=== PATIENT | female | born 1990 | race Two or more races ===

== ENCOUNTER 2016-06-14 03:38 | Emergency (ER) | payer OTHER, MEDICAID ==
[~2016-06-14] VITALS: Ht 162.6 cm; Wt 66.7 kg
[~2016-06-14 03:38] MED LIST: PREN-96 PO
[2016-06-14 03:43] VITALS: BP 99/61
[2016-06-14 04:39] LABS: Urine Bilirubin Negative (Negative); Urine Blood Negative /uL (Negative); Urine Color Yellow (Yellow); Urine Glucose Normal (Normal); Urine Ketone Negative (Negative); Urine Nitrite Negative (Negative); Urine RBC <1 /hpf (0 - 4); Urine Squamous Epithelial Cell FEW /hpf (<5); Urine Urobilinogen Normal (Negative); Urine pH 5.5 (5.0-8.0)
== END 2016-06-14 06:03 | disposition left against medical advice (07) ==
LOC: ER 03:41
DX: N64.4 Mastodynia (principal); Z53.21 Procedure and treatment not carried out due to patient leaving prior to being seen by health care provider
CPT/HCPCS: 36415; 81001; 81025; 84702

== ENCOUNTER 2016-08-20 03:42 | Emergency (ER) | payer OTHER, MEDICAID ==
[~2016-08-20] VITALS: Ht 162.6 cm; Wt 65.8 kg
[2016-08-20 03:49] VITALS: BP 112/75
[2016-08-20 04:03] LABS: Urine RBC None Seen /hpf (0 - 4)
[2016-08-20 04:05] LABS: Basophils # (auto) 0 uL; Basophils % (auto) 0.4 % (0.0-2.0); Eosinophils # (auto) 0.2 uL; Eosinophils % (auto) 2.3 % (0.0-7.0); Hematocrit 35.5 % (36.0-46.0); Hemoglobin 11.5 g/dL (12.2-16.2); Lymphocytes # (auto) 2.4 uL; Lymphocytes % (auto) 29.4 % (10.0-50.0); Mean Corpuscular Hemoglobin 31.3 pg (28.0-32.0); Mean Corpuscular Hgb Conc. 32.5 g/dL (32.0-36.0); Mean Corpuscular Volume 96.3 fL (80.0-100.0); Mean Platelet Volume 11.9 fL (7.4-10.4); Monocytes # (auto) 0.9 uL; Monocytes % (auto) 11.5 % (0.0-12.0); Neutrophils # (auto) 4.7 uL; Neutrophils % (auto) 56.4 % (37.0-80.0); Platelet Count (auto) 233 10^3/uL (140-450); Red Cell Distribution Width 13.9 % (11.6-16.0); SUSPECT VIEW TRANSMISSION; White Blood Cell 8.3 10^3/uL (4.4-10.8)
[2016-08-20 04:25] LABS: BUN/Creatinine Ratio 24.3; Calcium 8.7 mg/dL (8.5-10.1); Potassium 3.6 mmol/L (3.5-5.1)
[2016-08-20 04:31] LABS: Urine Bilirubin Negative (Negative); Urine Blood Negative /uL (Negative); Urine Color Yellow (Yellow); Urine Glucose Normal (Normal); Urine Ketone Negative (Negative); Urine Nitrite Negative (Negative); Urine Squamous Epithelial Cell FEW /hpf (<5); Urine Urobilinogen Normal (Negative); Urine pH 7.5 (5.0-8.0)
== END 2016-08-20 06:37 | disposition left against medical advice (07) ==
LOC: ER 03:54
DX: N93.8 Other specified abnormal uterine and vaginal bleeding (principal); R10.9 Unspecified abdominal pain; Z53.21 Procedure and treatment not carried out due to patient leaving prior to being seen by health care provider
CPT/HCPCS: 36415; 80048; 81001; 81025; 85025

== ENCOUNTER 2016-09-14 13:50 | Emergency (ER) | payer OTHER, MEDICAID ==
[~2016-09-14] VITALS: Ht 162.6 cm; Wt 64.4 kg
[2016-09-14 16:09] LABS: Basophils # (auto) 0.1 uL; Basophils % (auto) 0.9 % (0.0-2.0); Eosinophils # (auto) 0.1 uL; Eosinophils % (auto) 1.5 % (0.0-7.0); Hematocrit 38.4 % (36.0-46.0); Hemoglobin 12.9 g/dL (12.2-16.2); Lymphocytes % (auto) 29.9 % (10.0-50.0); Mean Corpuscular Hemoglobin 32.3 pg (28.0-32.0); Mean Corpuscular Hgb Conc. 33.7 g/dL (32.0-36.0); Mean Platelet Volume 11.6 fL (7.4-10.4); Monocytes # (auto) 0.4 uL; Monocytes % (auto) 5.4 % (0.0-12.0); Neutrophils # (auto) 4.1 uL; Neutrophils % (auto) 62.3 % (37.0-80.0); Platelet Count (auto) 255 10^3/uL (140-450); Red Cell Distribution Width 14.6 % (11.6-16.0); SUSPECT VIEW TRANSMISSION; White Blood Cell 6.5 10^3/uL (4.4-10.8)
[2016-09-14 16:11] LABS: Urine Bilirubin Negative (Negative); Urine Blood TRACE /uL (Negative); Urine Color Yellow (Yellow); Urine Glucose Normal (Normal); Urine Ketone Negative (Negative); Urine Nitrite Negative (Negative); Urine RBC <1 /hpf (0 - 4); Urine Squamous Epithelial Cell FEW /hpf (<5); Urine Urobilinogen Normal (Negative)
[2016-09-14 16:56] VITALS: BP 95/65
[2016-09-14 17:02] LABS: Large Platelets FEW; Platelet Estimate Adequate
== END 2016-09-14 18:11 | disposition home or self-care (01) ==
LOC: ER 13:50
DX: N93.9 Abnormal uterine and vaginal bleeding, unspecified (principal)
CPT/HCPCS: 36415; 81001; 84702; 85025

== ENCOUNTER 2017-12-04 14:06 | Emergency (ER) | payer MEDICAID, OTHER ==
[~2017-12-04] VITALS: Ht 165.1 cm; Wt 63.5 kg
[2017-12-04 14:45] LABS: Basophils # (auto) 0.1 uL; Basophils % (auto) 0.9 % (0.0-2.0); Eosinophils # (auto) 0.3 uL; Eosinophils % (auto) 3.9 % (0.0-7.0); Hematocrit 37.5 % (36.0-46.0); Hemoglobin 12.8 g/dL (12.2-16.2); Lymphocytes # (auto) 1.8 uL; Lymphocytes % (auto) 27.4 % (10.0-50.0); Mean Corpuscular Hemoglobin 32.8 pg (28.0-32.0); Mean Corpuscular Hgb Conc. 34.2 g/dL (32.0-36.0); Monocytes # (auto) 0.3 uL; Monocytes % (auto) 4.8 % (0.0-12.0); Neutrophils # (auto) 4.1 uL; Nucleated Red Blood Cells % 0.1 %; Platelet Count (auto) 193 10^3/uL (140-450); Red Blood Cells 3.91 10^6/uL (4.0-5.20); Red Cell Distribution Width 14.3 % (11.8-14.3); White Blood Cell 6.4 10^3/uL (4.4-10.8)
[2017-12-04 15:48] VITALS: BP 102/62
== END 2017-12-04 16:00 | disposition home or self-care (01) ==
LOC: ER 14:06
DX: O02.0 Blighted ovum and nonhydatidiform mole (principal)
CPT/HCPCS: 36415; 84702; 85025

== ENCOUNTER → 2017-12-04 | Emergency (ER) | payer OTHER, MEDICAID | END | disposition left against medical advice (07) | LOC: CANPREER → ER 02:54 | DX: N93.9 Abnormal uterine and vaginal bleeding, unspecified (principal); Z53.21 Procedure and treatment not carried out due to patient leaving prior to being seen by health care provider ==

== ENCOUNTER 2017-12-25 17:16 | Emergency (ER) | payer OTHER, MEDICAID ==
[~2017-12-25] VITALS: Ht 162.6 cm; Wt 65.8 kg
[2017-12-25 22:17] VITALS: BP 99/57
== END 2017-12-25 22:17 | disposition home or self-care (01) ==
LOC: ER 17:21
DX: O26.851 Spotting complicating pregnancy, first trimester (principal); O34.81 Maternal care for other abnormalities of pelvic organs, first trimester; N83.209 Unspecified ovarian cyst, unspecified side; Z3A.01 Less than 8 weeks gestation of pregnancy
CPT/HCPCS: 36415; 76801; 84702

== ENCOUNTER 2018-01-09 16:40 | Emergency (ER) | payer OTHER, MEDICAID ==
[~2018-01-09] VITALS: Ht 162.6 cm; Wt 67.1 kg
[2018-01-09 17:02] VITALS: BP 109/61
[2018-01-09] MEDS ORDERED: SODIUM CHLORIDE 0.9% 1,000 ML IVB ONE (17:14)
[2018-01-09 17:20] LABS: Urine Bacteria NONE SEEN /hpf (None Seen); Urine Blood Negative /uL (Negative); Urine Specific Gravity 1.002 (1.001-1.035); Urine WBC 1 /hpf (0 - 5)
[2018-01-09 17:37] LABS: Basophils # (auto) 0.1 uL; Basophils % (auto) 1.1 % (0.0-2.0); Eosinophils # (auto) 0.3 uL; Hematocrit 33.6 % (36.0-46.0); Hemoglobin 11.2 g/dL (12.2-16.2); Lymphocytes % (auto) 22.7 % (10.0-50.0); Mean Corpuscular Hemoglobin 32.4 pg (28.0-32.0); Mean Corpuscular Hgb Conc. 33.3 g/dL (32.0-36.0); Mean Corpuscular Volume 97.2 fL (80.0-100.0); Monocytes # (auto) 0.6 uL; Neutrophils # (auto) 5.9 uL; Neutrophils % (auto) 66.2 % (37.0-80.0); Platelet Count (auto) 239 10^3/uL (140-450); Red Blood Cells 3.46 10^6/uL (4.0-5.20); Red Cell Distribution Width 14.4 % (11.8-14.3); White Blood Cell 8.9 10^3/uL (4.4-10.8)
[2018-01-09 18:10] LABS: BUN/Creatinine Ratio 12.5; Bilirubin, Total 0.2 mg/dL (0.2-1.0); Calcium 8.6 mg/dL (8.5-10.1); Potassium 3.4 mmol/L (3.5-5.1)
[2018-01-09] MEDS ORDERED: POTASSIUM EFFERVESENT TAB 25 MEQ GT ONE (18:30)
== END 2018-01-09 18:26 | disposition home or self-care (01) ==
LOC: ER 16:40
DX: O08.5 Metabolic disorders following an ectopic and molar pregnancy (principal); E87.6 Hypokalemia; O25.11 Malnutrition in pregnancy, first trimester; Z3A.09 9 weeks gestation of pregnancy
CPT/HCPCS: 36415; 80053; 81001; 81025; 84702; 85025; 94761; 96360

== ENCOUNTER 2018-01-30 05:25 | Emergency (ER) | payer OTHER, MEDICAID ==
[~2018-01-30] VITALS: Ht 162.6 cm; Wt 67.1 kg
[2018-01-30 06:20] LABS: Urine Bacteria MANY /hpf (None Seen); Urine Blood 1+ /uL (Negative); Urine Mucus FEW (None Seen); Urine Specific Gravity 1.011 (1.001-1.035); Urine WBC 3 /hpf (0 - 5)
[2018-01-30 06:55] LABS: Basophils # (auto) 0 uL; Basophils % (auto) 0.2 % (0.0-2.0); Eosinophils # (auto) 0.3 uL; Eosinophils % (auto) 3.1 % (0.0-7.0); Hematocrit 33.7 % (36.0-46.0); Hemoglobin 11.6 g/dL (12.2-16.2); Lymphocytes % (auto) 22.5 % (10.0-50.0); Mean Corpuscular Hemoglobin 33.3 pg (28.0-32.0); Mean Corpuscular Hgb Conc. 34.5 g/dL (32.0-36.0); Mean Corpuscular Volume 96.5 fL (80.0-100.0); Monocytes # (auto) 0.7 uL; Monocytes % (auto) 7.9 % (0.0-12.0); Neutrophils # (auto) 5.8 uL; Neutrophils % (auto) 66.3 % (37.0-80.0); Platelet Count (auto) 223 10^3/uL (140-450); Red Blood Cells 3.49 10^6/uL (4.0-5.20); White Blood Cell 8.8 10^3/uL (4.4-10.8)
[2018-01-30 07:14] LABS: Albumin 2.7 g/dL (3.4-5.0); BUN/Creatinine Ratio 17.5; Calcium 7.9 mg/dL (8.5-10.1); Potassium 3.4 mmol/L (3.5-5.1)
[2018-01-30 07:16] LABS: Bilirubin, Total 0.1 mg/dL (0.2-1.0); Total Protein 6.8 g/dL (6.4-8.2)
[2018-01-30 09:07] VITALS: BP 104/66
[2018-01-30] MEDS ORDERED: POTASSIUM EFFERVESENT TAB 25 MEQ PO ONE (10:30)
== END 2018-01-30 10:28 | disposition home or self-care (01) ==
LOC: ER 05:25
DX: O26.851 Spotting complicating pregnancy, first trimester (principal); O25.11 Malnutrition in pregnancy, first trimester; O99.281 Endocrine, nutritional and metabolic diseases complicating pregnancy, first trimester; O44.01 Complete placenta previa NOS or without hemorrhage, first trimester; E87.6 Hypokalemia; Z3A.12 12 weeks gestation of pregnancy
CPT/HCPCS: 36415; 76801; 80053; 81001; 84702; 85025

== ENCOUNTER 2018-03-21 13:51 | Observation (INO) | payer OTHER, MEDICAID | END 2018-03-21 17:13 | disposition home or self-care (01) | DRG 833 | LOC: LDRP 13:51 | PROVIDERS: ADMIT Specialist; ATTEND Specialist | DX: O46.92 Antepartum hemorrhage, unspecified, second trimester (principal); W22.8XXA Striking against or struck by other objects, initial encounter; Y93.89 Activity, other specified; Y92.89 Other specified places as the place of occurrence of the external cause; Y99.8 Other external cause status; Z3A.21 21 weeks gestation of pregnancy | CPT/HCPCS: 59025; 76815; 81002; G0378 ==

== ENCOUNTER 2020-02-28 20:36 | Emergency (ER) | payer MEDICAID, OTHER ==
[~2020-02-28] VITALS: Ht 162.6 cm; Wt 73.5 kg
[2020-02-28 23:07] LABS: Basophils # (auto) 0.1 10 ^3/uL (0-0.2); Basophils % (auto) 0.5 % (0.0-2.0); Eosinophils # (auto) 0.2 10 ^3/uL (0-0.8); Eosinophils % (auto) 1.7 % (0.0-7.0); Hematocrit 37.7 % (36.0-46.0); Hemoglobin 12.5 g/dL (12.2-16.2); Lymphocytes # (auto) 2.9 10 ^3/uL (0.4-5.4); Lymphocytes % (auto) 26.4 % (10.0-50.0); Mean Corpuscular Hemoglobin 31.4 pg (28.0-32.0); Monocytes # (auto) 0.7 10 ^3/uL (0-1.3); Monocytes % (auto) 6.3 % (0.0-12.0); Neutrophils # (auto) 7.2 10 ^3/uL (1.6-8.6); Neutrophils % (auto) 65.1 % (37.0-80.0); Platelet Count (auto) 206 10^3/uL (140-450); Red Blood Cells 3.97 10^6/uL (4.0-5.20); Red Cell Distribution Width 13.6 % (11.8-14.3)
[2020-02-28 23:24] LABS: Albumin 3.5 g/dL (3.4-5.0); BUN/Creatinine Ratio 12.5; Calcium 8.9 mg/dL (8.5-10.1); Potassium 3.6 mmol/L (3.5-5.1)
[2020-02-28 23:27] LABS: Bilirubin, Total 0.2 mg/dL (0.2-1.0); Total Protein 7.7 g/dL (6.4-8.2)
[2020-02-29] MEDS ORDERED: KETOROLAC TROMETH 60MG/2ML VIAL IM ONE (07:00)
[2020-02-29 07:16] VITALS: BP 85/67
== END 2020-02-29 08:10 | disposition home or self-care (01) ==
LOC: ER 20:36
DX: N83.201 Unspecified ovarian cyst, right side (principal); Z32.02 Encounter for pregnancy test, result negative; R10.2 Pelvic and perineal pain; K58.9 Irritable bowel syndrome, unspecified; Z86.2 Personal history of diseases of the blood and blood-forming organs and certain disorders involving the immune mechanism; Z98.890 Other specified postprocedural states
CPT/HCPCS: 36415; 76817; 76856; 80053; 81002; 82150; 84702; 85025; 96372; 99284; J1885

== ENCOUNTER 2021-02-07 21:05 | Emergency (ER) | payer MEDICAID, OTHER ==
[~2021-02-07] VITALS: Ht 165.1 cm; Wt 79.4 kg
[2021-02-07 22:33] LABS: Basophils # (auto) 0 10 ^3/uL (0-0.2); Basophils % (auto) 0.6 % (0.0-2.0); Eosinophils # (auto) 0.3 10 ^3/uL (0-0.8); Eosinophils % (auto) 3.7 % (0.0-7.0); Hematocrit 38.1 % (36.0-46.0); Hemoglobin 12.5 g/dL (12.2-16.2); Lymphocytes # (auto) 3.1 10 ^3/uL (0.4-5.4); Lymphocytes % (auto) 38.3 % (10.0-50.0); Mean Corpuscular Hemoglobin 31.5 pg (28.0-32.0); Mean Corpuscular Hgb Conc. 32.9 g/dL (32.0-36.0); Monocytes # (auto) 0.8 10 ^3/uL (0-1.3); Monocytes % (auto) 9.7 % (0.0-12.0); Neutrophils # (auto) 3.8 10 ^3/uL (1.6-8.6); Neutrophils % (auto) 47.7 % (37.0-80.0); Nucleated Red Blood Cells % 0.2 %; Red Blood Cells 3.97 10^6/uL (4.0-5.20); Red Cell Distribution Width 14.2 % (11.8-14.3)
[2021-02-07 22:56] LABS: Albumin 3.6 g/dL (3.4-5.0); Calcium 9.1 mg/dL (8.5-10.1); Potassium 3.8 mmol/L (3.5-5.1)
[2021-02-07 23:00] LABS: BUN/Creatinine Ratio 12.9; Bilirubin, Total 0.1 mg/dL (0.2-1.0); Total Protein 7.3 g/dL (6.4-8.2)
[2021-02-08 03:55] LABS: Urine Bacteria FEW /hpf (None Seen); Urine Blood Negative /uL (Negative); Urine Specific Gravity 1.008 (1.001-1.035); Urine WBC 13 /hpf (0 - 5)
[2021-02-08 07:01] VITALS: BP 91/66
== END 2021-02-08 07:43 | disposition home or self-care (01) ==
LOC: ER 21:05
DX: N93.9 Abnormal uterine and vaginal bleeding, unspecified (principal); R10.9 Unspecified abdominal pain; M54.9 Dorsalgia, unspecified; Z98.890 Other specified postprocedural states
CPT/HCPCS: 36415; 76830; 76856; 80053; 81001; 84702; 85025; 87086; 87088; 87186

== ENCOUNTER 2021-02-23 00:54 | Emergency (ER) | payer OTHER ==
[~2021-02-23] VITALS: Ht 162.6 cm; Wt 74.8 kg
[2021-02-23 04:03] VITALS: BP 112/85
== END 2021-02-23 04:06 | disposition home or self-care (01) ==
LOC: ER 00:54 → EDBD 00:54 → ER 04:06
DX: O26.891 Other specified pregnancy related conditions, first trimester (principal); M25.561 Pain in right knee; Z3A.01 Less than 8 weeks gestation of pregnancy; Z79.899 Other long term (current) drug therapy; Z98.890 Other specified postprocedural states
CPT/HCPCS: 93971

== ENCOUNTER 2023-11-30 21:14 | Emergency (ER) | payer MEDICAID, OTHER ==
[~2023-11-30] VITALS: Ht 165.1 cm; Wt 83.8 kg
[2023-11-30 22:00] LABS: Urine Bacteria None Seen /hpf (None Seen)
[2023-11-30 22:27] LABS: Urine Blood Negative /uL (Negative); Urine Clarity Clear (Clear); Urine Color Yellow (Yellow); Urine Mucus FEW (None Seen); Urine Protein, UAD 1+ (Negative); Urine Specific Gravity 1.048 (1.001-1.035); Urine Urobilinogen 3 mg/dL (Negative); Urine WBC 10 /hpf (0 - 5)
[2023-11-30 22:59] VITALS: PULSE 85; RESP 14; O2SAT 96
[2023-11-30] MEDS: ONDANSETRON ODT 4 MG TAB PO ONE (23:13)
[2023-11-30] MEDS: ACETAMINOPHEN 500 MG TAB PO ONE (23:13)
[2023-12-01] MEDS ORDERED: NITR-87 PO (01:15)
[2023-12-01 01:24] VITALS: BP 105/69; PULSE 86; RESP 15; TEMP 98.5; O2SAT 100
== END 2023-12-01 01:25 | disposition home or self-care (01) ==
LOC: ER 21:14
DX: N92.6 Irregular menstruation, unspecified (principal); R10.2 Pelvic and perineal pain; N39.0 Urinary tract infection, site not specified; Z86.2 Personal history of diseases of the blood and blood-forming organs and certain disorders involving the immune mechanism; Z98.890 Other specified postprocedural states; Z79.899 Other long term (current) drug therapy
CPT/HCPCS: 36415; 76856; 81001; 84702; 99284; Q0162

== ENCOUNTER 2024-04-05 13:31 | Emergency (ER) | payer MEDICAID ==
[~2024-04-05] VITALS: Ht 165.1 cm; Wt 80.7 kg
[~2024-04-05 13:31] MED LIST changes: +NITR-87 PO
--- NOTE | 2024-04-05 13:52 | ED.PDOC ---
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 Patient reports that she had started to experience heavy vaginal bleeding with clots and associated suprapubic cramping since last night. Patient relays that her LMP was 03/15 and she took a test 2 days ago which came back negative. Patient states she is sexually active. Patient is A2. Patient denies any N/V/D, dizziness, chest pain, dysuria, vaginal discharge, or fever. Chief Complaint: Vaginal Bleed Time Seen by MD: 13:52 Reviewed Notes: Nurses Notes, Medications, Allergies Allergies: Coded Allergies: NO KNOWN ALLERGIES (Unverified , 10/11/12) Home Meds Active Scripts Nitrofurantoin Monohydrate Mac (Macrobid) 100 Mg Cap, 100 MG PO BID for 7 Days, #14 CAP Prov:QING MCNALLY MD 12/06/23 Nitrofurantoin Monohydrate Mac (Macrobid) 100 Mg Cap, 100 MG PO BID for 5 Days, #10 CAP Prov:BUCKY RÍOS PAC 12/01/23 Reported Medications Vit W/ Ferrous Fumara ( One Daily) Daily Tab, 1 TAB PO DAILY, TAB 09/02/14 Information Source: Patient Mode of Arrival: Ambulatory Timing: Days Prehospital treatment: None Severity: Moderate Vaginal Discharge: None Vaginal Lesions: None Bleeding Quality: Bright Red, Dark, Clotted Vaginal Mass: None Onset Of Mass/Bleeding: Spontaneous Sexual Activity: Sexually Active Last Consensual [place]: Unknown Control: None Symptoms of Possible : None Associated Signs and Symptoms: Vaginal Bleeding, Abdominal Pain, Cramping Past Medical History PAST MEDICAL HISTORY: Anemia Surgical History: , Tonsillectomy ONCOLOGY REP History: No Pertinent ONCOLOGY REP History 5 Para 3 AB 2 Family History Family History: No family hx of Cancer, No family hx of DM, No family hx of Heart kyrie, No family hx of HTN, No family hx of Stroke Social History Smoker: Non-Smoker Alcohol: Denies ETOH Use Drugs: Denies Drug Use Lives In: Home Constitutional: denies: chills, diaphoresis, fatigue, fever, malaise, sweats, weakness, others EENTM: denies: blurred vision, double vision, ear bleeding, ear discharge, ear drainage, ear pain, ear ringing, eye pain, eye redness, hearing loss, mouth pain, mouth swelling, nasal discharge, nose bleeding, nose congestion, nose pain, photophobia, tearing, throat pain, throat swelling, voice changes, others Respiratory: denies: cough, hemoptysis, orthopnea, SOB at rest, shortness of breath, SOB with excertion, stridor, wheezing, others Cardiovascular: denies: chest pain, dizzy spells, diaphoresis, Dyspnea on exertion, edema, irregular heart beat, left arm pain, lightheadedness, palpitations, PND, syncope, others Gastrointestinal: reports: abdominal pain; denies: abdomen distended, blood streaked bowels, constipated, diarrhea, dysphagia, difficulty swallowing, hem atemesis, melena, nausea, poor appetite, poor fluid intake, rectal bleeding, rectal pain, vomiting, others Genitourinary: reports: abnormal vagina bleeding; denies: burning, dyspareunia, dysuria, flank pain, frequency, hematuria, incontinence, pain, , vagina discharge, urgency, others Neurological: denies: dizziness, fainting, headache, left sided numbness, left sided weakness, numbness, paresthesia, pre-existing deficit, right sided n umbness, right sided weakness, seizure, speech problems, tingling, tremors, weakness, others Musculoskeletal: denies: back pain, gout, joint pain, joint swelling, muscle pain, muscle stiffness, neck pain, others Integumetry: denies: bruises, change in color, change in hair/nails, dryness, laceration, lesions, lumps, rash, wounds, others Allergic/Immunocompromised: denies: Difficulty Healing, Frequent Infections, Hives, Itching, others Hematologic/Lymphatic: denies: anemia, blood clots, easy bleeding, easy bruising, swollen glands, others Endocrine: denies: excessive hunger, excessive sweating, excessive thirst, excessive urination, flushing, intolerance to cold, intolerance to heat, unexplained weight gain, unexplained weight loss, others Psychiatric: denies: anxiety, bipolar disorder, depression, hopeless, panic disorder, schizophrenia, sleepless, suicidal, others All Other Systems: Reviewed and Negative Physical Exam General Appearance: No Apparent Distress, Normal HEENT: Normal ENT Inspection, Pharynx Normal, TMs Normal Neck: Full Range of Motion, Non-Tender, Normal, Normal Inspection Respiratory: Chest Non-Tender, Lungs Clear, No Accessory Muscle Use, No Respiratory Distress, Normal Breath Sounds Cardiovascular: No Edema, No JVD, No Murmur, No Gallop, Normal Peripheral Pulses, Regular Rate/Rhythm Breast Exam: Deferred Gastrointestinal: No Organomegaly, No Pulsatile Mass, Normal Bowel Sounds, Soft, Tenderness (Suprapubic tenderness) Genitalia: Deferred Pelvic: Deferred Rectal: Deferred Extremities: No calf tenderness, Normal capillary refill, Normal inspection, Normal range of motion, Non-tender, No pedal edema Musculoskeletal : Apperance: Normal Neurologic: Alert, crust sorter II-XII nml as Tested, No Motor Deficits, Normal Affect, Normal Mood, No Sensory Deficits Cerebellar Function: Normal Reflexes: Normal Skin: Dry, Normal Color, Warm Lymphatic: No Adenopathy Was a procedure done? Was a procedure done?: No Differential Diagnosis (ONCOLOGY REP) Vaginal Bleeding: - Complete, - Incomplete, - Inevitable, - Missed, - Threatened, Abruptio Placentae, Blood Loss Anemia, Dysmenorrhea, Ectopic , Menorrhagia, Menometrorrhagia, Menstrual Bleeding, Myomatous Uterus, PID, Placenta Previa, UTI, Vaginitis X-Ray, Labs, Meds, VS Vital Signs Date Time Temp Pulse Resp B/P (MAP) Pulse Ox O2 Delivery O2 Flow Rate FiO2 04/05/24 13:47 98.0 84 19 108/63 (78) 97 Lab Test 04/05/24 13:58 04/05/24 13:49 Range/Units White Blood Count 6.9 4.4-10.8 10^3/uL Red Blood Count 4.39 4.0-5.20 10^6/uL Hemoglobin 13.9 12.2-16.2 g/dL Hematocrit 41.4 36.0-46.0 % Mean Corpuscular Volume 94.4 80.0-100.0 fL Mean Corpuscular Hemoglobin 31.6 28.0-32.0 pg Mean Corpuscular Hemoglobin Concent 33.5 32.0-36.0 g/dL Red Cell Distribution Width 13.3 11.8-14.3 % Platelet Count 249 140-450 10^3/uL Mean Platelet Volume 11.4 H 6.9-10.8 fL Neutrophils (%) (Auto) 58.4 37.0-80.0 % Lymphocytes (%) (Auto) 29.6 10.0-50.0 % Monocytes (%) (Auto) 8.3 0.0-12.0 % Eosinophils (%) (Auto) 2.9 0.0-7.0 % Basophils (%) (Auto) 0.8 0.0-2.0 % Neutrophils # (Auto) 4.0 1.6-8.6 10 ^3/uL Lymphocytes # (Auto) 2.0 0.4-5.4 10 ^3/uL Monocytes # (Auto) 0.6 0-1.3 10 ^3/uL Eosinophils # (Auto) 0.2 0-0.8 10 ^3/uL Basophils # (Auto) 0.1 0-0.2 10 ^3/uL Nucleated Red Blood Cells 0.1 % Sodium Level 139 136-145 mmol/L Potassium Level 3.7 3.5-5.1 mmol/L Chloride Level 105 98-107 mmol/L Carbon Dioxide Level 30 20-31 mmol/L Anion Gap 4 L 5-15 Blood Urea Nitrogen 10 9-23 mg/dL Creatinine 0.89 0.550-1.02 mg/dL Glomerular Filtration Rate Calc 88 >90 mL/min BUN/Creatinine Ratio 11.2 10.0-20.0 Serum Glucose 100 74-106 mg/dL Calcium Level 10.2 8.7-10.4 mg/dL Beta HCG, Quantitative 2.1 1.5-4.2 mIU/mL Urine Color Colorless Yellow Urine Clarity Turbid H Clear Urine pH 5.5 5.0-9.0 Urine Specific [place] 1.011 1.001-1.035 Urine Protein Negative Negative Urine Ketones Negative Negative Urine Blood 3+ H Negative /uL Urine Nitrite Negative Negative Urine Bilirubin Negative Negative Urine Urobilinogen Normal Negative mg/dL Urine Leukocyte Esterase Negative Negative /uL Urine RBC 11 0 - 4 /hpf Urine WBC 4 0 - 5 /hpf Urine Squamous Epithelial Cells Few <5 /hpf Urine Bacteria Few H None Seen /hpf Urine Glucose Normal Normal mg/dL Current Medications Medications (Trade) Dose Ordered Sig/Jayson Route Start Time Stop Time Status Last Admin Ketorolac Tromethamine (Toradol Injection) 30 mg ONCE ONCE IM 04/05/24 13:45 04/05/24 13:46 DC 04/05/24 14:51 OB US: FINDINGS: Uterus measures 10.5 x 6.9 by 5.1 cm. The uterine myometrium demonstrates fairly homogeneous echotexture. There is no evidence of a discrete mass or fibroid. Endometrial stripe measures 3 mm. There are small nabothian cysts in the cervix. Right ovary measures 3.3 x 2.3 x 2.4 cm. There is a 1.7 cm dominant follicle seen in the right ovary. There is appropriate vascular flow. The left ovary is not seen on the current study. There is no free fluid in the cul-de-sac. IMPRESSION: 1. Unremarkable sonographic appearance of the uterus and right ovary. 2. Nonvisualization of the left ovary. Images Reviewed?: Images reviewed and evaluated by me Time of 1ST Reevaluation: 14:52 Reevaluation 1ST: Unchanged Patient Education/Counseling: Diagnosis, Treatment Family Education/Counseling: No Family Present Additional Information - The following tests were ordered, and results were reviewed by me: CBC, BMP, Beta HCG Quant, UA - I discussed treatments and results with medical personnel. i reviewed and agree with pelvic US per radiology pt does not have uterine mass, or any acute process. she does not have ovarian torsion. she is not . pt has severe menstrual cramps. she is stable for discharge Departure 1 Departure Time of Disposition: 17:27 Impression: Primary Impression: Menstrual cramps Additional Impression: Menorrhagia Qualified Codes: N92.1 - Excessive and frequent menstruation with irregular cycle Disposition: 01 HOME / SELF CARE / HOMELESS Condition: Good e-Prescriptions Ibuprofen Micronized (MOTRIN TABLET) 600 Mg Tb 600 MG PO TID PRN, #40 TAB *Black box warning-NSAIDS can increase risk of [place] & hypertension, GI irritation, ulceration, bleed, perferation. Do not use post cardiac surgery. Use short duration/lowest effective dose. Prov: GUILLE RIOS MD 04/05/24 Discharged With: Self Critical Care Note Critical Care Time?: No Stability Stability form required: No Heart Score Heart Score: Heart Score Response (Comments) Value History N/A 0 EKG N/A 0 Age N/A 0 Risk Factors N/A 0 Troponin N/A 0 Total 0 I personally scribed for GUILLE RIOS MD ([email or web address]) on 04/05/24 at 13:52. Electronically submitted by Jeffery Conklin ([email or web address]). I personally scribed for GUILLE RIOS MD ([facility]) on 04/05/24 at 13:58. Electronically submitted by Jeffery Conklin ([email or web address]). I personally scribed for GUILLE RIOS MD ([facility]) on 04/05/24 at 13:59. Electronically submitted by Jeffery Conklin ([email or web address]). I personally scribed for GUILLE RIOS MD ([facility]) on 04/05/24 at 17:06. Electronically submitted by Jeffery Conklin ([email or web address]). GUILLE RIOS MD Apr 05, 2024 13:52
[2024-04-05 14:19] LABS: Urine Bacteria FEW /hpf (None Seen); Urine Blood 3+ /uL (Negative); Urine Clarity Turbid (Clear); Urine Color Colorless (Yellow); Urine Protein, UAD Negative (Negative); Urine Specific Gravity 1.011 (1.001-1.035); Urine Urobilinogen Normal (Negative); Urine WBC 4 /hpf (0 - 5); Urine pH 5.5 (5.0-9.0)
[2024-04-05 14:22] LABS: Basophils # (auto) 0.1 10 ^3/uL (0-0.2); Basophils % (auto) 0.8 % (0.0-2.0); Eosinophils # (auto) 0.2 10 ^3/uL (0-0.8); Eosinophils % (auto) 2.9 % (0.0-7.0); Hematocrit 41.4 % (36.0-46.0); Hemoglobin 13.9 g/dL (12.2-16.2); Lymphocytes % (auto) 29.6 % (10.0-50.0); Mean Corpuscular Hemoglobin 31.6 pg (28.0-32.0); Mean Corpuscular Hgb Conc. 33.5 g/dL (32.0-36.0); Mean Corpuscular Volume 94.4 fL (80.0-100.0); Monocytes # (auto) 0.6 10 ^3/uL (0-1.3); Monocytes % (auto) 8.3 % (0.0-12.0); Neutrophils % (auto) 58.4 % (37.0-80.0); Nucleated Red Blood Cells % 0.1 %; Platelet Count (auto) 249 10^3/uL (140-450); Red Blood Cells 4.39 10^6/uL (4.0-5.20); Red Cell Distribution Width 13.3 % (11.8-14.3); White Blood Cell 6.9 10^3/uL (4.4-10.8)
[2024-04-05 14:32] LABS: Chloride 105 mmol/L (98-107); Potassium 3.7 mmol/L (3.5-5.1); Sodium 139 mmol/L (136-145)
[2024-04-05 14:33] LABS: Anion Gap 4 (5-15); Carbon Dioxide 30 mmol/L (20-31)
[2024-04-05 14:34] LABS: Calcium 10.2 mg/dL (8.7-10.4)
[2024-04-05 14:38] LABS: Glucose 100 mg/dL (74-106)
[2024-04-05 14:39] LABS: BUN/Creatinine Ratio 11.2 (10.0-20.0); Blood Urea Nitrogen 10 mg/dL (9-23)
[2024-04-05] MEDS: KETOROLAC TROMETH 30 MG/ML 1ML VIAL IM ONE (14:51)
--- NOTE | 2024-04-05 16:30 | DVH ---
TRANSABDOMINAL AND ENDOVAGINAL PELVIC ULTRASOUND CLINICAL HISTORY: bleeding, pain TECHNIQUE: Multiple transabdominal and endovaginal grayscale sonographic images of the pelvis were obtained. Comparison: US PELVIC on DOS: 11/30/23 FINDINGS: Uterus measures 10.5 x 6.9 by 5.1 cm. The uterine myometrium demonstrates fairly homogeneous echotext ure. There is no evidence of a discrete mass or fibroid. Endometrial stripe measures 3 mm. There ar e small nabothian cysts in the cervix. Right ovary measures 3.3 x 2.3 x 2.4 cm. There is a 1.7 cm dominant follicle seen in the right ovary . There is appropriate vascular flow. The left ovary is not seen on the current study. There is no free fluid in the cul-de-sac. IMPRESSION: 1. Unremarkable sonographic appearance of the uterus and right ovary. 2. Nonvisualization of the left ovary. HS:Y
[2024-04-05] MEDS ORDERED: IBU600T PO (17:28)
[2024-04-05 17:45] VITALS: BP 102/80; TEMP 97.3
[2024-04-05 17:46] VITALS: PULSE 63; RESP 18; O2SAT 98
== END 2024-04-05 17:49 | disposition home or self-care (01) ==
LOC: ER 13:31
DX: N94.6 Dysmenorrhea, unspecified (principal); N92.1 Excessive and frequent menstruation with irregular cycle; Z79.899 Other long term (current) drug therapy; Z98.890 Other specified postprocedural states
CPT/HCPCS: 36415; 76856; 80048; 81001; 84702; 85025; 96372; 99285; J1885

== ENCOUNTER 2024-05-05 14:37 | Emergency (ER) | payer MEDICAID ==
[~2024-05-05] VITALS: Ht 165.1 cm; Wt 83.5 kg
[~2024-05-05 14:37] MED LIST changes: +IBU600T PO
--- NOTE | 2024-05-05 15:00 | ED.PDOC ---
General HPI Comments 34 Y F presents to the ED with CC of vaginal bleeding. Patient relays, that she is currently ; positive test on 04/25/24. Patient states, [facility] when she was refereed to [facility] for a further evaluation. Patient states, she was seen at [facility] yesterday 05/04/24 and was told that she could have a possible atopic or be experiencing a miscarriage; patient was told to go to ED. Patient denies abdominal pain, lower back pain, N/V/D, or cramps. Time Seen by MD: 14:50 Primary Care Provider: [facility] Reviewed notes: Nurses Notes, Medications, Allergies Allergies: Coded Allergies: NO KNOWN ALLERGIES (Unverified , 10/11/12) Home Meds Active Scripts Ibuprofen Micronized (MOTRIN TABLET) 600 Mg Tb, 600 MG PO TID PRN, #40 TAB *Black box warning-NSAIDS can increase risk of [place] & hypertension, GI irritation, ulceration, bleed, perferation. Do not use post cardiac surgery. Use short duration/lowest effective dose. Prov:GUILLE RIOS MD 04/05/24 Nitrofurantoin Monohydrate Mac (Macrobid) 100 Mg Cap, 100 MG PO BID for 7 Days, #14 CAP Prov:QING MCNALLY MD 12/06/23 Nitrofurantoin Monohydrate Mac (Macrobid) 100 Mg Cap, 100 MG PO BID for 5 Days, #10 CAP Prov:BUCKY RÍOS PAC 12/01/23 Reported Medications Vit W/ Ferrous Fumara ( One Daily) Daily Tab, 1 TAB PO DAILY, TAB 09/02/14 Information Source: Patient Mode of Arrival: Ambulatory Severity: Moderate Timing: Days Duration: Since onset Prehospital treatment: None Onset: Spontaneous History of: None Location: (L)Flank Modifying factors: None associated signs and symptoms: None Past Medical History PAST MEDICAL HISTORY: Anemia Surgical History: , Tonsillectomy ENTRY LEVEL ELECTRICIAN History: No Pertinent ENTRY LEVEL ELECTRICIAN History Family History Family History: No family hx of Cancer, No family hx of DM, No family hx of Heart kyrie, No family hx of HTN, No family hx of Stroke Social History Smoker: Non-Smoker Alcohol: Denies ETOH Use Drugs: Denies Drug Use Lives In: Home Constitutional: denies: chills, diaphoresis, fatigue, fever, malaise, sweats, weakness, others EENTM: denies: blurred vision, double vision, ear bleeding, ear discharge, ear drainage, ear pain, ear ringing, eye pain, eye redness, hearing loss, mouth pain, mouth swelling, nasal discharge, nose bleeding, nose congestion, nose pain, photophobia, tearing, throat pain, throat swelling, voice changes, others Respiratory: denies: cough, hemoptysis, orthopnea, SOB at rest, shortness of breath, SOB with excertion, stridor, wheezing, others Cardiovascular: denies: chest pain, dizzy spells, diaphoresis, Dyspnea on exertion, edema, irregular heart beat, left arm pain, lightheadedness, palpitations, PND, syncope, others Gastrointestinal: reports: others (LLQ PAIN); denies: abdomen distended, abdominal pain, blood streaked bowels, constipated, diarrhea, dysphagia, difficulty swallowing, hematemesis, melena, nausea, poor appetite, poor fluid intake, rectal bleeding, rectal pain, vomiting Genitourinary: reports: flank pain, ; denies: abnormal vagina bleeding, burning, dyspareunia, dysuria, frequency, hematuria, incontinence, pain, vagina discharge, urgency, others Neurological: denies: dizziness, fainting, headache, left sided numbness, left sided weakness, numbness, paresthesia, pre-existing deficit, right sided numb ness, right sided weakness, seizure, speech problems, tingling, tremors, weakness, others Musculoskeletal: denies: back pain, gout, joint pain, joint swelling, muscle pain, muscle stiffness, neck pain, others Integumetry: denies: bruises, change in color, change in hair/nails, dryness, laceration, lesions, lumps, rash, wounds, others Allergic/Immunocompromised: denies: Difficulty Healing, Frequent Infections, Hives, Itching, others Psychiatric: denies: anxiety, bipolar disorder, depression, hopeless, panic disorder, schizophrenia, sleepless, suicidal, others All Other Systems: Reviewed and Negative Physical Exam General Appearance: No Apparent Distress HEENT: Normal ENT Inspection, Pharynx Normal, TMs Normal Neck: Full Range of Motion, Non-Tender, Normal, Normal Inspection Respiratory: Chest Non-Tender, Lungs Clear, No Accessory Muscle Use, No Respiratory Distress, Normal Breath Sounds Cardiovascular: No Edema, No JVD, No Murmur, No Gallop, Normal Peripheral Pulses, Regular Rate/Rhythm Breast Exam: Deferred Gastrointestinal: No Organomegaly, Non Tender, No Pulsatile Mass, Normal Bowel Sounds, Soft Genitalia: Deferred Pelvic: Deferred Rectal: Deferred Extremities: No calf tenderness, Normal capillary refill, Normal inspection, Normal range of motion, Non-tender, No pedal edema Musculoskeletal : Apperance: Normal Neurologic: Alert, podiatric foot and ankle specialist II-XII nml as Tested, No Motor Deficits, Normal Affect, Normal Mood, No Sensory Deficits Cerebellar Function: Normal Reflexes: Normal Skin: Dry, Normal Color, Warm Lymphatic: No Adenopathy Was a procedure done? Was a procedure done?: No Differential Diagnosis Kidney stone (Female): Ectopic , Other (possible miscarriage) X-Ray, Labs, Meds, VS Vital Signs Date Time Temp Pulse Resp B/P (MAP) Pulse Ox O2 Delivery O2 Flow Rate FiO2 05/05/24 15:27 99.1 77 16 116/72 (87) 98 Lab Test 05/05/24 15:23 Range/Units Urine Color Colorless Yellow Urine Clarity Clear Clear Urine pH 6.5 5.0-9.0 Urine Specific [place]ce 1.007 1.001-1.035 Urine Protein Negative Negative Urine Ketones Negative Negative Urine Blood Negative Negative /uL Urine Nitrite Negative Negative Urine Bilirubin Negative Negative Urine Urobilinogen Normal Negative mg/dL Urine Leukocyte Esterase Negative Negative /uL Urine RBC None seen 0 - 4 /hpf Urine WBC 1 0 - 5 /hpf Urine Squamous Epithelial Cells Few <5 /hpf Urine Bacteria None seen None Seen /hpf Urine Glucose Normal Normal mg/dL Urine Test Positive Negative Ultrasound of the pelvis shows: IMPRESSION: The uterus measures 8.9 x 6.1 x 7.9 cm. Small amount of free fluid in the pelvic cul-de-sac. Hypoechoic structure within the endometrium measuring 0.8 cm. Yolk sac is visualized. No pole is identified. Findings are most likely due to early gestation. Recommend follow-up ultrasound in 2 weeks to rule out failed . Right ovary measures 4.7 x 4.1 x 2.0 cm with cystic lesion measuring 2.3 cm. Right ovary demonstrates normal color doppler flow. Left ovary is not visualized on this study. The test is negative This seems to be an early gestation so the patient was being discharged The patient was no pain upon discharge The patient will follow up with the primary care doctor Images Reviewed?: Images reviewed and evaluated by me Time of 1ST Reevaluation: 15:20 Reevaluation 1ST: Unchanged Time of 2ND Reevaluation: 20:15 Reevaluation 2ND: Unchanged Patient Education/Counseling: Diagnosis, Treatment, Prognosis, Need For Follow Up Family Education/Counseling: No Family Present Additional Information - I reviewed the following notes from patient's past medical encounters: 04/05/24 DX: Menstrual Cramps - The following tests were ordered, and results were reviewed by me: DAVINA OB US - I reviewed and agreed with the following test results read by other provider: DAVINA OB US - I discussed treatments and results with medical personnel and patient. Departure 1 Departure Time of Disposition: 20:14 Impression: Primary Impression: Abdominal pain Qualified Codes: R10.9 - Unspecified abdominal pain Disposition: HOME / SELF CARE / HOMELESS Condition: Fair Discharged With: Self Critical Care Note Critical Care Time?: No Stability Stability form required: No Heart Score Heart Score: Heart Score Response (Comments) Value History N/A 0 EKG N/A 0 Age N/A 0 Risk Factors N/A 0 Troponin N/A 0 Total 0 I personally scribed for HOMA NATH MD ([email or web address]) on 05/05/24 at 15:00. Electronically submitted by Steff Chatterjee ([email or web address]). I personally scribed for HOMA NATH MD ([email or web address]) on 05/05/24 at 15:08. Electronically submitted by Steff Cahtterjee ([email or web address]). I personally scribed for HOMA NATH MD ([email or web address]) on 05/05/24 at 16:23. Electronically submitted by Steff Chatterjee [email or web address]). I personally scribed for HOMA NATH MD ([email or web address]) on 05/05/24 at 16:25. Mary Jane ctronically submitted by Steff Chatterjee ([email or web address]). I personally scribed for HOMA NATH MD ([email or web address]) on 05/05/24 at 16:33. Electr onically submitted by Steff Chatterjee [email or web address]). HOMA NATH MD May 05, 2024 15:00
[2024-05-05 16:19] LABS: Urine Bacteria None Seen /hpf (None Seen)
[2024-05-05 16:36] LABS: Urine Blood Negative /uL (Negative); Urine Clarity Clear (Clear); Urine Color Colorless (Yellow); Urine Protein, UAD Negative (Negative); Urine Specific Gravity 1.007 (1.001-1.035); Urine Squamous Epithelial Cell FEW /hpf (<5); Urine Urobilinogen Normal (Negative); Urine WBC 1 /hpf (0 - 5); Urine pH 6.5 (5.0-9.0)
--- NOTE | 2024-05-05 18:50 | DVH ---
OB ULTRASOUND <14 WEEKS: HISTORY: pain TECHNIQUE: Multiple real-time grayscale sonographic images of the pelvis with duplex Doppler color f low, spectral and M-mode analysis. TRANSDUCERS: Transabdominal Findings/ IMPRESSION: The uterus measures 8.9 x 6.1 x 7.9 cm. Small amount of free fluid in the pelvic cul-de-sac. Hypoecho ic structure within the endometrium measuring 0.8 cm. Yolk sac is visualized. No pole is ident ified. Findings are most likely due to early gestation. Recommend follow-up ultrasound in 2 weeks to rule out failed . Right ovary measures 4.7 x 4.1 x 2.0 cm with cystic lesion measuring 2.3 cm. Right ovary demonstrates normal color doppler flow. Left ovary is not visualized on this study.
[2024-05-05 20:32] VITALS: BP 99/61; PULSE 78; RESP 20; TEMP 98.3; O2SAT 99
== END 2024-05-05 20:45 | disposition home or self-care (01) ==
LOC: ER 14:37
DX: O26.891 Other specified pregnancy related conditions, first trimester (principal); R10.9 Unspecified abdominal pain; Z90.89 Acquired absence of other organs; Z3A.01 Less than 8 weeks gestation of pregnancy
CPT/HCPCS: 76801; 76817; 81001; 81025

== ENCOUNTER 2024-08-31 01:26 | Observation (INO) | payer MEDICAID ==
[~2024-08-31] VITALS: Ht 165.1 cm; Wt 88.5 kg
[2024-08-31] MEDS ORDERED: MAGNESIUM SULFATE 40MG/ML 1,000 ML IV SCH (01:45)
[2024-08-31] MEDS ORDERED: MAGNESIUM SULFATE 100 ML IV ONE (01:45)
[2024-08-31] MEDS ORDERED: BETAMETHASONE ACET (30mg/5ml) 5ml Vial 6mg/ml IM ONE (01:45)
[2024-08-31 02:27] LABS: Basophils # (auto) 0 10 ^3/uL (0-0.2); Basophils % (auto) 0.5 % (0.0-2.0); Eosinophils # (auto) 0.2 10 ^3/uL (0-0.8); Hemoglobin 12.6 g/dL (12.2-16.2); Lymphocytes # (auto) 2.5 10 ^3/uL (0.4-5.4); Lymphocytes % (auto) 23.4 % (10.0-50.0); Mean Corpuscular Volume 94.1 fL (80.0-100.0); Monocytes # (auto) 0.7 10 ^3/uL (0-1.3); Monocytes % (auto) 6.9 % (0.0-12.0); Neutrophils % (auto) 67.2 % (37.0-80.0); Platelet Count (auto) 240 10^3/uL (140-450); Red Blood Cells 3.94 10^6/uL (4.0-5.20); Red Cell Distribution Width 14.9 % (11.8-14.3); White Blood Cell 10.5 10^3/uL (4.4-10.8)
[2024-08-31 02:34] LABS: Fern Testing Positive
[2024-08-31 02:46] LABS: INR 0.94 (0.9-1.15); Partial Thromboplastin Time 27.3 SEC (24.5-34.5)
[2024-08-31 02:50] LABS: Alanine Aminotransferase 21 U/L (7-40); Alkaline Phosphatase 65 U/L (46-116); Anion Gap 8 (5-15); Aspartate Aminotransferase 19 U/L (13-40); BUN/Creatinine Ratio 11.1 (10.0-20.0); Calcium 9.5 mg/dL (8.7-10.4); Carbon Dioxide 24 mmol/L (20-31); Glucose 92 mg/dL (74-106); Potassium 3.6 mmol/L (3.5-5.1); Sodium 141 mmol/L (136-145); Total Protein 6.7 g/dL (5.7-8.2)
[2024-08-31 03:04] LABS: Bilirubin, Total 0.2 mg/dL (0.2-1.0); Blood Urea Nitrogen 7 mg/dL (9-23); Chloride 109 mmol/L (98-107)
--- NOTE | 2024-08-31 03:08 | DVH ---
EXAM: US OB ULTRASOUND COMP GTR 14 WKS HISTORY: 24 weeks SROM TECHNIQUE: Multiple real-time grayscale images of the gravid uterus with duplex Doppler color flow an d M-mode spectral analysis. COMPARISON: None FINDINGS: IUP single live fetus at 22 weeks 5 days average ultrasound age (AUA) based on composite averages of the BPD, head circumference, abdominal circumference and femur length MEASUREMENTS: BPD: 5.3 cm GA: 22 w 1 d HC: 20.6 cm GA: 22 w 5 d AC: 18.7 cm GA: 23 w 4 d FL: 4.0 cm GA: 23 w 0 d Estimated weight 567 g +/-85 g grams. heart rate 131 beats per minute MVP 6.4 ANATOMIC SURVEY: Single IUP Left transverse head Presentation Anterior placenta without previa or abruption Cervix open measuring 0.6 cm IMPRESSION: 1. IUP single live fetus at 22 weeks 5 days AUA corresponding to an LINA of 12/30/2024. 2. Open shortened cervix. Patient in contractions.
[2024-08-31 03:31] LABS: Giant Platelets Few; Large Platelets FEW; Platelet Estimate Adequate
--- NOTE | 2024-08-31 14:44 | DVHDS2 ---
Physician Discharge Progress N Final Diagnosis: ,IUP AT 24WKS WITH PPROM ,HX OF CS X3 ,Patient left AMA Operations or Procedures: Operations or Procedures NST,SONO,LABS ,nst reviwed reactive Other Interventions Other Interventions MG WAS ORDERED TO BE STARTED WELL CELESTONE,STAT US WAS ORDERED HOWEVER PT VERBALIZED TO THE NURSES THAT HER BOY FRIEND WAS COMING OVER TO TAKE HER LOCAL TO [facility] [place].A FACE SHEET OF HER INSURANCE WAS SENT TO ME SO I CAN CONTACT DR DUONG FOR TRANSFER TO [facility] BUT PT STATED SHE DOESNT Want to go that far and will leave as soon as boy friend gets here .she also refused to give uds.pt was fully counseled reg leaving ama .pt fully understood the risks and complication of going ama Condition on Discharge: Unstable Disposition: AMA Discharge Instructions: Diet: Regular Activity: See Comment Activity comment: Patient left AMA Medications: na Follow Up Care: Specialist: left ama Discharge Statement: "Patient was advised to return to the ER or call 911 if any headaches, dizziness, shortness of breath, chest pain, abdominal pain, bleeding, fevers, or worsening of medical condition. Patient was counseled about treatment plan, medications, possible side effects, patientverbalized understanding. All questions were answered to the best of my ability. This discharge took greater then 30 minutes in planning, reviewing documentation, counseling the patient, and discussing with other team members." Visit Coding OBGYN Date of Service: August 31, 2024 Billing Provider: LAI HORAN DO FUEL CELL BATTERY TECHNICIAN Common Visit Codes: 36674-FRJ/OBS SAME DATE (HIGH) FUEL CELL BATTERY TECHNICIAN Procedure Codes: 92513-05- NON-STRESS TEST LAI HORAN DO August 31, 2024 14:44
== END 2024-08-31 02:15 | disposition left against medical advice (07) ==
LOC: INTOOBSV 01:26 → LDRP 01:26
PROVIDERS: ADMIT Obstetrics & Gynecology; ATTEND Obstetrics & Gynecology
DX: O42.912 Preterm premature rupture of membranes, unspecified as to length of time between rupture and onset of labor, second trimester (principal); O09.522 Supervision of elderly multigravida, second trimester; R79.1 Abnormal coagulation profile; Z3A.24 24 weeks gestation of pregnancy; Z79.899 Other long term (current) drug therapy; Z98.890 Other specified postprocedural states
CPT/HCPCS: 36415; 59025; 76805; 80053; 83735; 85025; 85610; 85730; 86703; 86780; 86803; 86850; 86900; 86901; 87340; G0378; Q0114

== ENCOUNTER 2025-04-18 14:04 | Outpatient (CLI) | payer MEDICAID ==
[2025-04-18 14:35] LABS: Hematocrit 42.7 % (36.0-46.0); Hemoglobin 13.9 g/dL (12.2-16.2); Mean Corpuscular Hemoglobin 30.7 pg (28.0-32.0); Mean Corpuscular Volume 94.3 fL (80.0-100.0); Nucleated Red Blood Cells % 0.0 %
[2025-04-18 16:11] LABS: Free T4 (Free Thyroxine) 1.02 ng/dL (0.89-1.76)
[2025-04-18 16:12] LABS: Follicle Stimulating Hormone 6.32 IU/L (SEE BELOW)
== END 2025-04-18 17:00 | disposition home or self-care (01) ==
LOC: LAB 14:04
PROVIDERS: ATTEND Obstetrics & Gynecology
DX: N97.9 Female infertility, unspecified (principal)
CPT/HCPCS: 36415; 82626; 82670; 83001; 83002; 84146; 84403; 84439; 84443; 85025